=== PATIENT | male | born 1990 | race Caucasian/White ===

== ENCOUNTER 2024-08-27 08:43 | Inpatient (IN) | payer BC, OTHER ==
[~2024-08-27] VITALS: Ht 167.6 cm; Wt 79.4 kg
[2024-08-27 08:47] VITALS: O2SAT 98
[2024-08-27 09:30] LABS: BASOPHILS % 0.3 % (0.0-2.0); EOSINOPHILS % 0.8 % (0.0-5.0); HEMATOCRIT. 39.0 % (42.0-52.0); HEMOGLOBIN. 13.8 g/dL (14.0-18.0); LYMPHOCYTES % 9.6 % (20.0-50.0); MEAN PLATELET VOLUME 7.6 fl (7.4-10.4); MONOCYTES % 4.2 % (2.0-8.0); NEUTROPHILS % 85.1 % (40.0-76.0); PLATELET 247 x1000/uL (130-400); RED BLOOD CELL COUNT 4.57 mill/uL (4.7-6.1); RED CELL DISTRIBUTION WIDTH 13.1 % (11.6-14.6)
[2024-08-27 09:45] LABS: CREATININE 0.9 mg/dL (0.6-1.3)
[2024-08-27 09:46] LABS: ETHANOL BLOOD < 10 mg/dL (<10); UREA NITROGEN BLOOD 16 mg/dL (9-23)
[2024-08-27 09:47] LABS: ASPARTATE AMINOTRANSFERASE 99 IU/L (<34)
[2024-08-27 09:48] LABS: BILIRUBIN DIRECT 0.5 mg/dL (<=3.0); BILIRUBIN TOTAL 1.3 mg/dL (0.1-1.0); PROTEIN TOTAL 7.1 g/dL (6.0-8.3)
[2024-08-27] MEDS ORDERED: CLONIDINE 0.1MG TABLET PO PRN (12:00)
[2024-08-27] MEDS ORDERED: ACETAMINOPHEN 325MG TABLET PO PRN ×2 (12:00)
[2024-08-27] MEDS ORDERED: ONDANSETRON HCL 4MG/2ML INJ IV PRN (12:00)
[2024-08-27] MEDS ORDERED: DOCUSATE SODIUM 100MG CAPSULE PO PRN (12:00)
[2024-08-27] MEDS ORDERED: IPRATROPIUM/ALBUTEROL 0.5-3(2.5)MG/3ML NEB HHN PRN (12:00)
[2024-08-27 12:15] VITALS: BP 111/54; PULSE 61; RESP 18; TEMP 36.7; O2SAT 98
[2024-08-27] MEDS: PANTOPRAZOLE SODIUM 40 MG/VIAL IV SCH (12:52)
[2024-08-27] MEDS: SODIUM CHLORIDE 0.9% 1,000 ML IV SCH (12:53)
[2024-08-27 16:00] VITALS: BP 99/46; PULSE 48; RESP 18; TEMP 36.1; O2SAT 99
[2024-08-27 16:29] VITALS: BP 111/54; PULSE 61; RESP 18; TEMP 36.696
[2024-08-27 20:10] VITALS: BP 108/62; PULSE 58; RESP 20; TEMP 37; O2SAT 100
[2024-08-27 22:12] LABS: TROPONIN I HIGH SENSITIVITY < 4 ng/L (3.0-53)
[2024-08-28 00:02] VITALS: BP 111/63; PULSE 61; RESP 20; TEMP 36.9; O2SAT 98
[2024-08-28 04:13] VITALS: BP 100/50; PULSE 54; RESP 20; TEMP 36.4; O2SAT 97
[2024-08-28 08:27] VITALS: BP 105/55; PULSE 71; RESP 20; TEMP 36.6; O2SAT 98
[2024-08-28 09:19] LABS: CLARITY URINE CLEAR (CLEAR); COLOR URINE DARK YELLOW (YELLOW); GLUCOSE URINE NEGATIVE (NEGATIVE); KETONES URINE TRACE (NEGATIVE); LEUKOCYTE ESTERASE URINE NEGATIVE (NEGATIVE); NITRITE URINE NEGATIVE (NEGATIVE); OCCULT BLOOD URINE NEGATIVE (NEGATIVE); PH URINE 6.0 (4.5-8.0); PROTEIN URINE NEGATIVE (NEGATIVE); SPECIFIC GRAVITY URINE 1.030 (1.005-1.030); UROBILINOGEN URINE 1.0 E.U./dL (0.2-1.0)
[2024-08-28 09:49] LABS: *AMPHETAMINES SCREEN URINE PRESUMPTIVE POSITIVE (NEGATIVE); *BARBITURATES SCREEN URINE NEGATIVE (NEGATIVE); *BENZODIAZEPINES SCREEN URINE NEGATIVE (NEGATIVE); *COCAINE SCREEN URINE NEGATIVE (NEGATIVE); METHADONE URINE SCREEN NEGATIVE (NEGATIVE)
[2024-08-28 09:50] LABS: CANNABINOID URINE SCREEN NEGATIVE (NEGATIVE); ECSTASY MDMA SCREEN URINE NEGATIVE (NEGATIVE); OPIATES URINE SCREEN NEGATIVE (NEGATIVE); PHENCYCLIDINE URINE SCREEN NEGATIVE (NEGATIVE)
[2024-08-28 12:00] VITALS: BP 104/52; PULSE 60; RESP 18; TEMP 36.1; O2SAT 100
[2024-08-28 12:05] LABS: BASOPHILS % 0.5 % (0.0-2.0); EOSINOPHILS % 2.7 % (0.0-5.0); HEMATOCRIT. 39.1 % (42.0-52.0); HEMOGLOBIN. 13.8 g/dL (14.0-18.0); LYMPHOCYTES % 17.9 % (20.0-50.0); MEAN PLATELET VOLUME 7.9 fl (7.4-10.4); MONOCYTES % 6.5 % (2.0-8.0); NEUTROPHILS % 72.4 % (40.0-76.0); PLATELET 246 x1000/uL (130-400); RED BLOOD CELL COUNT 4.58 mill/uL (4.7-6.1); RED CELL DISTRIBUTION WIDTH 13.4 % (11.6-14.6)
[2024-08-28 12:36] LABS: CREATININE 0.8 mg/dL (0.6-1.3)
[2024-08-28 12:37] LABS: UREA NITROGEN BLOOD 15 mg/dL (9-23)
[2024-08-28 16:00] VITALS: BP 110/62; PULSE 78; RESP 18; TEMP 36.3; O2SAT 99
[2024-08-28 19:01] LABS: INR 1.1
[2024-08-28 20:00] VITALS: BP 100/40; PULSE 56; RESP 20; TEMP 36.6; O2SAT 99
[2024-08-29] VITALS (7 sets, daily range): BP systolic 94–109; BP diastolic 34–75; PULSE 50–69; RESP 18–20; TEMP 36.4–37.1; O2SAT 97–100
[2024-08-30] VITALS: BP 91/40; PULSE 68; RESP 20; TEMP 36.8; O2SAT 100
[2024-08-30 04:00] VITALS: BP 93/46; PULSE 60; RESP 20; TEMP 36.4; O2SAT 100
== END 2024-08-30 07:47 | disposition home or self-care (01) | DRG 917 ==
LOC: ER 08:43 → 7WST 10:58 → EDBEDREQTM 11:06 → EDBEDREQ 11:06 → 8EST 08-30 04:27
PROVIDERS: ADMIT Hospitalist; ATTEND Hospitalist
DX: T43.651A Poisoning by methamphetamines accidental (unintentional), initial encounter (principal); G92.8 Other toxic encephalopathy; Z59.00 Homelessness unspecified; F15.10 Other stimulant abuse, uncomplicated; D64.9 Anemia, unspecified; Z53.20 Procedure and treatment not carried out because of patient's decision for unspecified reasons; F90.9 Attention-deficit hyperactivity disorder, unspecified type; Y92.89 Other specified places as the place of occurrence of the external cause
CPT/HCPCS: 36415; 71045; 80048; 80076; 80305; 80307; 80320; 80329; 81003; 82550; 84484; 85025; 93005; 99291; A4606; J2470; J7030; G0480